=== PATIENT | female | born 1970 | race Caucasian/White ===

== ENCOUNTER 2017-04-22 07:41 | Emergency (ER) | payer OTHER ==
[2017-04-22] MEDS ORDERED: Ketorolac Tromethamine 30 MG/ML VIAL ONE (09:34)
--- NOTE | 2017-04-22 09:51 | ULT ---
ULTRASOUND ABDOMEN LIMITED: (RIGHT UPPER QUADRANT) HISTORY: 46-year-old female with acute right upper quadrant abdominal pain, with nausea and emesis. FINDINGS: The gallbladder has normal wall thickness and has no evidence of gallstones or sludge. The hepatic echogenicity is diffusely increased, consistent with fatty liver. The right kidney has normal echog enicity and has no hydronephrosis. The pancreas is visualized, although ultrasound is relatively in sensitive for pancreatic pathology compared to CT and MRI. There is no biliary dilation. The commo n duct caliber is 4 mm. IMPRESSION: 1. Hepatic steatosis. 2. Otherwise negative. jn [] POS: SHEILA
== END 2017-04-22 10:54 | disposition home or self-care (01) ==
LOC: ERS 07:41
DX: R10.11 Right upper quadrant pain (principal); R11.2 Nausea with vomiting, unspecified; J45.909 Unspecified asthma, uncomplicated; Z87.891 Personal history of nicotine dependence
CPT/HCPCS: 76705; 96374; J1885

== ENCOUNTER 2017-05-02 10:58 | Outpatient (CLI) | payer OTHER ==
[2017-05-02] MEDS ORDERED: Morphine Sulfate 2 MG/ML SYRINGE ONE (16:01)
--- NOTE | 2017-05-02 17:57 | NM ---
NUCLEAR MEDICINE HEPATOBILIARY SCAN: Date: 05/02/17 HISTORY: 46-year-old female with right upper quadrant abdominal pain. TECHNIQUE: IV injection of 5.3 mCi technetium-99m mebrofenin. Dynamic anterior upper abdominal scintigraphy performed for 1 hour. 2 mg of morphine sulfate IV push. Additional dynamic anterior scintigraphy. Additional static views obtained prior to morphine. FINDINGS: There is normal uptake and washout of activity from the liver. Bowel activity is visualized early. T here is transient visualization of the gallbladder, which disappears prior to morphine administratio n. After morphine injection, there is again, transient filling of the gallbladder, which then disapp ears. IMPRESSION: Abnormal scan. Transient activity in the gallbladder, suggestive of gallbladder dysfunction. POS: SHEILA
== END 2017-05-02 10:59 | disposition home or self-care (01) ==
LOC: NM 10:58
PROVIDERS: ATTEND Family Medicine
DX: R10.11 Right upper quadrant pain (principal)
CPT/HCPCS: 78227; A9537; J2270

== ENCOUNTER 2017-05-02 17:09 | Inpatient (IN) | payer OTHER ==
[2017-05-02 17:50] LABS: #Basophils 0.1 thou/uL (0.0-0.2); #Lymphocytes 2.6 thou/uL (1.20-3.40); #Monocytes 0.9 thou/uL (0.11-0.59); #Neutrophils 10.6 thou/uL (1.40-6.50); %Basophils 0.6 % (0.0-1.0); %Eosinophils 0.3 % (0.0-10.0); %Lymphocytes 18.2 % (21.0-51.0); Hematocrit 48.5 % (36.0-47.0); Red Blood Cell (RBC) Count 5.28 mill/uL (4.20-5.40); White Blood Cell (WBC) Count 14.2 thou/uL (4.8-10.8)
[2017-05-02 18:09] LABS: ALT (SGPT) 19 U/L (8-55); AST (SGOT) 16 U/L (5-34); Alkaline Phosphatase 89 U/L (40-150); Anion Gap 16 mmol/L (10-20); BUN (Urea Nitrogen) 12 mg/dL (7.0-18.7); Bilirubin, Total 0.4 mg/dL (0.2-1.2); Calc. Creatinine Clearance 0 mL/min (70-130); Calcium 9.9 mg/dL (7.8-10.44); Carbon Dioxide 25 mmol/L (22-29); Chloride 103 mmol/L (98-107); Estimated GFR-MDRD 82; Globulin 3.8 g/dL (2.4-3.5); Lipase 7 U/L (8-78); Protein, Total 8.3 g/dL (6.0-8.3)
[2017-05-02] MEDS ORDERED: Ondansetron HCl/PF 4 MG/2 ML Vial ONE (18:10)
[2017-05-02] MEDS ORDERED: Ondansetron ODT 4 MG TAB PO PRN (19:07)
[2017-05-02] MEDS ORDERED: Dextrose 5% in Water 1,000 ML IV PRN (19:07)
[2017-05-02] MEDS ORDERED: Ondansetron HCl/PF 4 MG/2 ML Vial IVP PRN (19:07)
[2017-05-02] MEDS ORDERED: Dextrose 50% Abboject 50 ML SYRINGE SLOW IVP PRN (19:07)
[2017-05-02] MEDS ORDERED: Levofloxacin 500 mg/D5W 100 ml Premix Bag ONE (19:58)
[2017-05-02] MEDS ORDERED: Morphine Sulfate 2 MG/ML SYRINGE ONE (20:49)
[2017-05-02] MEDS: Famotidine 20 MG TAB PO SCH (21:46)
[2017-05-02] MEDS: Enoxaparin Sodium 40 MG/0.4 ML SYRINGE SC SCH (21:46)
[2017-05-02] MEDS: Lactated Ringer's 1,000 ML IV SCH (21:46)
[2017-05-02] MEDS: Acetaminophen 1,000 MG in Premix Bag 1 BAG IVPB PRN (22:04)
[2017-05-02 22:15] VITALS: BMI 30.9
[2017-05-03] MEDS: Ketorolac Tromethamine 30 MG/ML VIAL IVP SCH ×3 (00:09→12:57)
--- NOTE | 2017-05-03 00:41 | HP ---
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 She presented to the emergency room a week and a half ago, undergoing a CT scan of the abdomen and pelv is read by Dr. Jules without any remarkable findings. Abdominal ultrasound on 04/22/2017 obtained on the same visit in the emergency room reveals fatty liver changes, normal bile duct caliber of 4 mm w ith no other significant findings. Patient had persistent pain, went to [place], transferred here, underwent a HIDA scan, read out as transient, possible visualization of the gallbladder, and it was felt to be an abnormal scan with gallbladder dysfunction. Her liver function tests are normal. Wh ite count 14, hemoglobin 16. Patient is admitted for antibiotics and laparoscopic cholecystectomy t omorrow. She understands risks of infection, bleeding, visceral, biliary injury, and consents. ALLERGIES: None. MEDICATIONS AT HOME: Multivitamins, Motrin, hydrocodone 5/325, Colace, Tylenol with Codeine. PAST SURGICAL HISTORY: C-sections, total abdominal hysterectomy, bilateral salpingo-oophorectomy, a ppendectomy. Incisional hernia above the umbilicus, plan to repair at the time of her laparotomy wh en she underwent her hysterectomy with Dr. Welch. Colonoscopy 2014, Dr. Kate, normal. FAMILY HISTORY: Negative. SOCIAL HISTORY: Tobacco, none for 3-4 years. REVIEW OF SYSTEMS: Noncontributory, ten-point. PHYSICAL EXAMINATION: VITAL SIGNS: 72 kilograms, 137/90, heart rate 90, 18, 98 degrees. HEAD, EARS, EYES, NOSE, AND THROAT: Unremarkable. LUNGS: Clear to auscultation. CARDIAC: Regular rate and rhythm without murmur or gallop. ABDOMEN: Soft, tenderness in right upper quadrant with guarding, positive Boyce's sign. EXTREMITIES: Unremarkable. Sclerae nonicteric. SKIN: Nonjaundiced. EXTREMITIES: Unremarkable. ASSESSMENT: Cholecystitis. PLAN: Admission with intravenous antibiotics, analgesics, and plan laparoscopic cholecystectomy eamon orrow. Risks of infection, bleeding, visceral, and biliary injury explained, she consents.
[2017-05-03] MEDS: Lactated Ringer's 1,000 ML IV SCH ×2 (05:22→12:57)
[2017-05-03] MEDS: Famotidine 20 MG TAB PO SCH ×2 (09:14→21:04)
[2017-05-03] MEDS: Acetaminophen 1,000 MG in Premix Bag 1 BAG IVPB PRN (09:17)
[2017-05-03] MEDS ORDERED: Bupivacaine/Epinephrine 0.25% 30 ML VIAL ONE (13:05)
[2017-05-03] MEDS ORDERED: Midazolam HCl 2 mg/2 ml Vial ONE (13:16)
[2017-05-03] MEDS ORDERED: Fentanyl 100 MCG/2 ML VIAL ONE ×2 (13:16→15:41)
[2017-05-03] MEDS ORDERED: Metoclopramide HCl 10 MG/2 ML VIAL ONE (13:25)
[2017-05-03] MEDS ORDERED: Lidocaine 1% PF 5 ML VIAL ONE (13:25)
[2017-05-03] MEDS ORDERED: Ondansetron HCl/PF 4 MG/2 ML Vial ONE (13:25)
[2017-05-03] MEDS ORDERED: PHENYLEPHRINE-NS 100 MCG/ML 10 ML SYRINGE ONE (13:25)
[2017-05-03] MEDS ORDERED: diphenhydrAMINE HCl 50 MG/ML 1 ML VIAL ONE (13:25)
[2017-05-03] MEDS ORDERED: Propofol 200 MG/20 ML VIAL ONE (13:25)
[2017-05-03] MEDS ORDERED: ePHEDrine/0.9% NaCl/PF SYRINGE 50 mg/10 ml ONE (13:25)
[2017-05-03] MEDS ORDERED: Dexamethasone 20 MG/5 ML VIAL ONE (13:25)
[2017-05-03] MEDS ORDERED: EPINEPHrine 1 MG/ML AMP ONE (13:54)
[2017-05-03] MEDS ORDERED: EPINEPHrine 1 MG/10 ML Abboject SYRINGE ONE (13:54)
[2017-05-03] MEDS ORDERED: SUGAMMADEX SODIUM 500 MG/5 ML VIAL ONE (14:35)
[2017-05-03] MEDS ORDERED: traMADol HCl 50 MG TAB PO PRN (17:14)
[2017-05-03] MEDS ORDERED: Ibuprofen 600 MG TAB PO PRN (17:14)
[2017-05-03] MEDS ORDERED: Acetaminophen 500 MG TAB PO PRN (17:14)
[2017-05-03 17:51] LABS: Hematocrit 39.8 % (36.0-47.0)
--- NOTE | 2017-05-03 19:29 | DIS ---
DATE OF ADMISSION: 05/02/2017 DATE OF DISCHARGE: 05/03/2017 DISCHARGE DIAGNOSES: Acute cholecystitis and cholelithiasis. PROCEDURES DURING HOSPITALIZATION: Laparoscopic video cholecystectomy. HISTORY: A 46-year-old female, week and a half history of right upper quadrant pain, who presented in [place]. CAT scan and ultrasound abdomen normal. She continued with pain, presented again in [facility] emergency room. HIDA scan revealed equivocal findings, she had clinically acute cholecystitis wi th a positive Boyce's sign. Liver function tests normal. White count normal. The patient was adm itted for laparoscopic cholecystectomy, placement antibiotics next day and underwent laparoscopic vi matheus cholecystectomy with findings of the stone in the gallbladder neck, obstructing the gallbladder outlet. The patient postoperatively did well and is discharged home on [id number] Tylenol, ib uprofen for pain, and Ultram as needed. She will follow up in my office in 2-3 weeks. Diet and act ivity as tolerated. No restrictions.
[2017-05-03] MEDS: Enoxaparin Sodium 40 MG/0.4 ML SYRINGE SC SCH (21:05)
[2017-05-03] MEDS: traMADol HCl 50 MG TAB PO PRN (21:15)
--- NOTE | 2017-05-03 21:57 | OP ---
PREOPERATIVE DIAGNOSIS: Acute cholecystitis, right upper quadrant pain. Negative ultrasound of the gallbladder, negative CAT scan of abdomen and pelvis, equivocally abnormal HIDA scan. POSTOPERATIVE DIAGNOSIS: Acute cholecystitis, cholelithiasis, gallstone obstructing the gallbladder outlet (false negative ultrasound). SURGEON: Dr. Rashard Guzman ANESTHESIA: General. Local 0.5% Marcaine with epinephrine. Note: During initial insufflation, karissa bess experienced hypotension requiring cessation of pneumoperitoneum evacuation and resuscitation o f the patient. CPR was not required, but with vasopressors, patient recovered and the procedure was completed. FINDINGS: Gallstone occluding the gallbladder outlet with acute cholecystitis. PROCEDURE: Patient was taken to the operating room where under general anesthesia, abdomen was prep ared with chloraprep, draped in routine fashion. A 0.5% Marcaine with epinephrine infiltrated into skin and subcutaneous tissue about each port site. Because of previous infraumbilical incision, a r ight subcostal lateral incision made, pneumoperitoneum to 15 mmHg obtained initiated with the Veress needle. There was some difficulty in obtaining pneumoperitoneum. I then made an incision in right subxiphoid and a Veress needle placed in this port and pneumoperitoneum achieved and a 5 mm trocar catheters were placed through the right mid subcostal incision and an 11 mm port placed through the right subxiphoid incision and pneumoperitoneum is initiated. The umbilical area was free of adhesio ns and periumbilical incision made and a 5 port placed, and video laparoscope placed through this po rt. There was some bleeding from the liver from the Veress needle and these was cauterized. Vanesa pavon was hypotensive and was given vasopressors. This hypotension was not from the bleeding, but from some other cause. She was given vasopressors and then pneumoperitoneum ceased, evacuated and patien t resuscitated and once she was stable, when procedure completed, right lateral subcostal incision m sebastian and another 5 port placed. Liver appeared to be fatty, but normal. Fundus of the gallbladder g rasped and reflected cephalad. The gallbladder wall was edematous and thickened. Infundibulum gras ped and reflected laterally. Cystic artery and duct dissected free. Critical view obtained with tw o-thirds dissection of the gallbladder from the cystic plate. Cystic artery and duct were clearly i dentified, double clipped proximally, divided, and gallbladder dissected free from the liver bed obt aining good hemostasis prior to division of final peritoneal attachments. Gallbladder and contents removed and submitted to Pathology. There was a stone obstructing the gallbladder outlet ultr asound being normal. Hemostasis gained with the cautery. FloSeal Yancy and Surgicel placed in the liver bed, excellent hemostasis noted. Irrigant and pneumoperitoneum evacuated. All instruments r emoved and all skin incisions approximated with interrupted subdermal 4-0 Monocryl and DermaGlue tim lied.
[2017-05-04] MEDS: traMADol HCl 50 MG TAB PO PRN ×2 (04:25→11:34)
[2017-05-04 05:46] LABS: #Lymphocytes 1.8 thou/uL (1.20-3.40); #Monocytes 1.1 thou/uL (0.11-0.59); #Neutrophils 7.4 thou/uL (1.40-6.50); %Basophils 0.2 % (0.0-1.0); %Eosinophils 0.5 % (0.0-10.0); %Lymphocytes 17.3 % (21.0-51.0); %Monocytes 10.5 % (0.0-10.0); Hematocrit 35.2 % (36.0-47.0); Mean Platelet Volume 8.1 fL (7.4-10.4); Red Blood Cell (RBC) Count 3.76 mill/uL (4.20-5.40); White Blood Cell (WBC) Count 10.3 thou/uL (4.8-10.8)
[2017-05-04 06:39] LABS: ALT (SGPT) 125 U/L (8-55); AST (SGOT) 111 U/L (5-34); Alkaline Phosphatase 59 U/L (40-150); Anion Gap 11 mmol/L (10-20); BUN (Urea Nitrogen) 9 mg/dL (7.0-18.7); Bilirubin, Direct 0.2 mg/dL (0.1-0.3); Bilirubin, Total 0.3 mg/dL (0.2-1.2); Calc. Creatinine Clearance 114 mL/min (70-130); Calcium 8.4 mg/dL (7.8-10.44); Carbon Dioxide 27 mmol/L (22-29); Chloride 105 mmol/L (98-107); Estimated GFR-MDRD 90; Protein, Total 5.8 g/dL (6.0-8.3)
[2017-05-04] MEDS: Famotidine 20 MG TAB PO SCH (10:01)
--- NOTE | 2017-05-04 10:51 | PRG ---
DATE OF SERVICE: 05/04/2017 Ms. Greene is doing well today. She was kept last night because of mild tachycardia and hypotensive e pisode intraoperatively yesterday. She was having back pain and tachycardia. By this morning, this has resolved. PHYSICAL EXAMINATION: VITAL SIGNS: Temperature 97.7 degrees, 81, 16, blood pressure 105/71. Her white count is 10, hemoglobin 11.4. Basic metabolic panel is normal. Her AST and ALT are moder ately elevated, but her bilirubin is normal. She had some nausea with oatmeal this morning. She is tolerating her liquids otherwise. PHYSICAL EXAMINATION: LUNGS: Clear to auscultation. CARDIAC: Regular rate and rhythm without murmur or gallop. ABDOMEN: Soft, mild tenderness right upper quadrant as expected postoperatively. EXTREMITIES: Unremarkable. ASSESSMENT AND PLAN: Observe this morning, anticipate discharge home later this morning or afternoo n. Follow up in my office in 2-3 weeks. DIET: As tolerated. ACTIVITY: No activity restrictions. Oral Tylenol, Motrin or Ultram as needed for pain.
[2017-05-04 12:28] VITALS: BP 98/64; TEMP 97.5
== END 2017-05-04 15:15 | disposition home or self-care (01) | DRG 419 ==
LOC: ERS 17:09 → SURG A 19:39
PROVIDERS: ADMIT Specialist; ATTEND Specialist
PROC: 0FT44ZZ Resection of Gallbladder, Percutaneous Endoscopic Approach (ICD-10-PCS; principal; 2017-05-03)
DX: K80.01 Calculus of gallbladder with acute cholecystitis with obstruction (principal); I95.9 Hypotension, unspecified; R00.0 Tachycardia, unspecified; Z87.891 Personal history of nicotine dependence
CPT/HCPCS: 36415; 80048; 80053; 80076; 83690; 85014; 85018; 85025; 85049; 88304; 96361; 96365; 96375; 96376; J0131; J0171; J1100; J1200; J1650; J1885; J1956; J2001; J2250; J2270; J2405; J2704; J2765; J3010

== ENCOUNTER 2018-08-10 13:17 | Outpatient (CLI) | payer OTHER ==
--- NOTE | 2018-08-10 15:39 | MRI ---
MR OF THE LEFT SHOULDER WITHOUT CONTRAST: 08/10/18 INDICATION: Rotator cuff syndrome with left shoulder pain. COMPARISON: Left shoulder radiograph dated 06/11/18. FINDINGS: There is a small intrasubstance delaminating tear involving the mid posterior supraspinatus at the fo otprint measuring 4 x 2 mm in its greatest AP and mediolateral dimensions respectively. There is mil d tendinosis of the supraspinatus and infraspinatus. No muscular atrophy is evident. There is mild te ndinosis of the subscapularis. The biceps tendon is located. The biceps anchor complex anchor complex appears intact. There is some high increased T2 signal involving the posterior superior aspect of th e glenoid labrum on image 9 of series 4, image 9 of series 5, and image 8 of series 3 suspicious for a small SLAP tear. No enlarged lymph nodes are evident. There is a type II acromion. No os acromiale is evident. IMPRESSION: 1. Some linear increased T2 signal involving the posterior superior glenoid labrum suspicious fo r a small SLAP tear. A repeat MR arthrogram of the left shoulder may be helpful to further evaluate t his abnormality. 2. Small intrasubstance delaminating tear of the mid to posterior supraspinatus at footprint w ith mild supra spinatus and infraspinatus tendinosis. 3. Small amount of fluid in the subacrominal subdeltoid space may reflect underlying bursitis. POS: CET
== END 2018-08-10 13:18 | disposition home or self-care (01) ==
LOC: SCSMRI 13:17
PROVIDERS: ATTEND Family Medicine
DX: M75.102 Unspecified rotator cuff tear or rupture of left shoulder, not specified as traumatic (principal); R93.7 Abnormal findings on diagnostic imaging of other parts of musculoskeletal system

== ENCOUNTER 2024-08-09 10:45 | Outpatient (CLI) | payer BC ==
[2024-08-09 12:54] LABS: #Basophils 0.04 10x3/uL (0.0-0.2); %Basophils 0.4 % (0.0-1.0); %Eosinophils 1.3 % (0.0-10.0); %Lymphocytes 20.8 % (21.0-51.0); %Monocytes 7.7 % (0.0-10.0); %Neutrophils 69.6 % (42.0-75.0); Hemoglobin 13.3 g/dL (12.0-16.0); Mean Corpuscular HGB CONC 32.4 g/dL (32.0-36.0); Mean Corpuscular Hemoglobin 29.5 pg (27.0-31.0); Mean Corpuscular Volume 90.9 fL (78.0-98.0); Mean Platelet Volume 11.7 fL (7.4-10.4); Platelet Count 247 10x3/uL (130-400); RBC Distribution Width 13.4 % (11.5-14.5); Red Blood Cell (RBC) Count 4.51 mill/uL (4.20-5.40)
[2024-08-09 13:04] LABS: PTT 30.6 sec (22.9-36.1); Prothrombin Time 13.4 sec (12.0-14.7)
[2024-08-09 13:05] LABS: Anion Gap 11 mmol/L (10-20); BUN (Urea Nitrogen) 18 mg/dL (9.8-20.1); Calc. Creatinine Clearance 0 mL/min (70-130); Calcium 9.2 mg/dL (7.8-10.44); Carbon Dioxide 28 mmol/L (22-29); Chloride 104 mmol/L (98-107); Estimated GFR 54; Glucose 114 mg/dL (70-105); Potassium 3.4 mmol/L (3.5-5.1); Sodium 140 mmol/L (136-145)
[2024-08-09 16:14] LABS: Bilirubin Negative (Negative); Blood, Urine 2+ (Negative); Clarity Clear (Clear); Glucose, Urine (Dipstick) Normal (Negative); Ketone, Urine 10 mg/dL (Negative); Leukocyte Negative Leu/uL (Negative); Nitrite Negative (Negative); Protein, Urine (Dipstick) 20 mg/dL (Neg-Trace); Specific Gravity, Urine 1.028 (1.002-1.036); Urobilinogen Normal mg/dL (Less than 2); pH, Urine 5.5 (5.0-9.0)
[2024-08-09 16:17] LABS: Bacteria/HPF 1+ HPF (None Seen)
== END 2024-08-09 10:46 | disposition home or self-care (01) ==
LOC: LABBT 10:45
PROVIDERS: ATTEND Urology
DX: Z01.818 Encounter for other preprocedural examination (principal); N20.2 Calculus of kidney with calculus of ureter; R35.0 Frequency of micturition
CPT/HCPCS: 80048; 81001; 85025; 85610; 85730; 87086; 93005; 93010

== ENCOUNTER 2024-08-12 08:24 | Day surgery (SDC) | payer BC ==
[2024-08-09 10:59] VITALS: BMI 35.2
[2024-08-12] MEDS ORDERED: cefTRIAXone (ROCEPHIN) 2 GM VIAL ONE (11:01)
[2024-08-12] MEDS ORDERED: Sodium Chloride 0.9% 100 ML ONE (11:02)
[2024-08-12] MEDS ORDERED: fentaNYL PF 100 MCG/2 ML SYRINGE ONE (11:08)
[2024-08-12] MEDS ORDERED: Midazolam HCl 2 mg/2 ml Vial ONE (11:08)
[2024-08-12] MEDS ORDERED: PROPOFOL 20 ML ONE (11:08)
[2024-08-12] MEDS ORDERED: Rocuronium Bromide 10 MG/ML (10ML VIAL) ONE (11:10)
[2024-08-12] MEDS ORDERED: SUGAMMADEX SODIUM 200 MG/2 ML VIAL ONE ×2 (11:13→12:36)
[2024-08-12] MEDS ORDERED: Iopamidol 30 ML ONE (11:28)
[2024-08-12] MEDS ORDERED: Lidocaine 4% Topical Sol 50 ML BOT ONE (11:36)
[2024-08-12] MEDS ORDERED: Dexamethasone 20 MG/5 ML VIAL ONE (12:19)
[2024-08-12] MEDS ORDERED: Ketorolac Tromethamine 30 MG (1 mL) VIAL ONE (12:19)
[2024-08-12] MEDS ORDERED: fentaNYL 50 mcg/mL 1 mL Vial ONE (13:07)
== END 2024-08-12 14:58 | disposition home or self-care (01) ==
LOC: SDC 08:24
PROVIDERS: ATTEND Urology
PROC: 0TC78ZZ Extirpation of Matter from Left Ureter, Via Natural or Artificial Opening Endoscopic (ICD-10-PCS; principal; 2024-08-12)
PROC: 0T778DZ Dilation of Left Ureter with Intraluminal Device, Via Natural or Artificial Opening Endoscopic (ICD-10-PCS; principal; 2024-08-12)
DX: N20.2 Calculus of kidney with calculus of ureter (principal); J45.909 Unspecified asthma, uncomplicated; K76.0 Fatty (change of) liver, not elsewhere classified; R35.0 Frequency of micturition; Z90.710 Acquired absence of both cervix and uterus; Z98.890 Other specified postprocedural states; Z90.49 Acquired absence of other specified parts of digestive tract; Z79.899 Other long term (current) drug therapy
CPT/HCPCS: 74018; 74420; 82365; 88300; C1747; C1769; C2617; J0696; J1100; J1885; J2250; J2704; J3010; Q9967